=== PATIENT | female | born 1955 | race Caucasian/White ===

== ENCOUNTER 2020-12-15 10:03 | Emergency (ER) | payer MEDICARE, OTHER ==
[~2020-12-15] VITALS: Ht 157.5 cm; Wt 98.6 kg
[2020-12-15 10:22] VITALS: TEMP 98.8
[2020-12-15 10:54] LABS: INR 1.1 (0.8-3.0); PROTHROMBIN TIME 11.7 SECONDS (9.7-12.8)
[2020-12-15] MEDS ORDERED: CARDIZEM120 MG PO (10:54)
[2020-12-15] MEDS ORDERED: ASPIRIN 81M81 MG/TA2 PO (10:55)
[2020-12-15] MEDS ORDERED: HCTZ 25MG TAB25 MG PO (10:55)
[2020-12-15] MEDS ORDERED: COREG12.5 MG PO (10:56)
[2020-12-15 10:57] LABS: ALANINE AMINOTRANSFERASE 47 U/L (4-34); ALBUMIN 4.3 gm/dL (3.5-5.0); ALKALINE PHOSPHATASE 46 U/L (50-136); ANION GAP 7 mmol/L (7-16); AST,SGOT 49 U/L (15-37); BILIRUBIN,TOTAL 0.5 mg/dL (0.0-1.0); BLOOD UREA NITROGEN 8 mg/dL (7-17); CALCIUM 9.9 mg/dL (8.4-10.2); CARBON DIOXIDE 28 mmol/L (22-30); CHLORIDE 101 mmol/L (98-107); GLUCOSE 152 mg/dL (74-106); PARTIAL THROMBOPLASTIN TIME 21.5 SECONDS (26.0-37.0); POTASSIUM 4.2 mmol/L (3.4-5.0); SODIUM 136 mmol/L (137-145); TOTAL PROTEIN 7.6 gm/dL (6.4-8.2)
[2020-12-15] MEDS ORDERED: MEGARED OMEGA-1 EAC3 PO (10:58)
[2020-12-15] MEDS ORDERED: NITROSTAT0.4 MG/TAB SL (10:58)
[2020-12-15] MEDS ORDERED: ZOLOFT 50MG50 MG PO (11:02)
[2020-12-15] MEDS ORDERED: PROTONIX 40MG T40 MG PO (11:03)
[2020-12-15] MEDS ORDERED: VALIUM 10MG10 MG/TAB PO (11:03)
[2020-12-15] MEDS ORDERED: ZOFRAN 4MG T4 MG/TAB PO (11:04)
[2020-12-15] MEDS ORDERED: TESSALON PERLE200 MG PO (11:04)
[2020-12-15 11:09] LABS: TROPONIN-I < 0.012 ng/mL (0.000-0.035)
[2020-12-15 11:16] LABS: BASO % 0.4 % (0.0-2.0); EOS # 0.1 (0.0-0.7); EOS % 2.2 % (0-4.0); GRAN # 3.6 (1.4-6.5); GRAN % 65.4 % (42.2-75.2); HEMATOCRIT 39.7 % (37.0-47.0); HEMOGLOBIN 13.1 g/dl (12.5-16.0); LYMPH # 1.4 (1.2-3.4); LYMPH % 24.6 % (20.0-51.0); MEAN CELL VOLUME 88 fl (80.0-100.0); MEAN CORPUSCULAR HEMOGLOBIN 29 pg (27.0-31.0); MEAN CORPUSCULAR HGB CONC 33 g/dl (33.0-37.0); MEAN PLATELET VOLUME 9.1 fl (7.4-10.4); MONO # 0.4 (0.1-0.6); MONO % 6.9 % (1.7-9.3); PLATELET COUNT 221 K/mm3 (130-400); RED BLOOD COUNT 4.53 M/mm3 (4.10-5.30); REDCELL DISTRIBUTION WIDTH-CV 13.2 % (11.5-14.5)
[2020-12-15 12:51] VITALS: BP 188/93; PULSE 72
== END 2020-12-15 12:52 | disposition home or self-care (01) ==
LOC: COL.ER 10:03
PROVIDERS: Family Medicine
DX: R06.02 Shortness of breath (principal); I10 Essential (primary) hypertension; I25.10 Atherosclerotic heart disease of native coronary artery without angina pectoris; Z95.9 Presence of cardiac and vascular implant and graft, unspecified; Z79.82 Long term (current) use of aspirin; Z79.899 Other long term (current) drug therapy

== ENCOUNTER 2021-01-06 09:10 | Day surgery (SDC) | payer MEDICARE, OTHER ==
[~2021-01-06] VITALS: Ht 157.5 cm; Wt 98.6 kg
[2021-01-06] VITALS (10 sets, daily range): BP systolic 108–147; BP diastolic 62–82; PULSE 68–77; TEMP 97.8
[~2021-01-06 09:10] MED LIST: ASPIRIN 81M81 MG/TA2 PO; CARDIZEM120 MG PO; COREG12.5 MG PO; HCTZ 25MG TAB25 MG PO; MEGARED OMEGA-1 EAC3 PO; NITROSTAT0.4 MG/TAB SL; PROTONIX 40MG T40 MG PO; TESSALON PERLE200 MG PO; VALIUM 10MG10 MG/TAB PO; ZOFRAN 4MG T4 MG/TAB PO; ZOLOFT 50MG50 MG PO
[2021-01-06 09:55] LABS: HEMATOCRIT 40.4 % (37.0-47.0); HEMOGLOBIN 13.4 g/dl (12.5-16.0); MEAN CELL VOLUME 86 fl (80.0-100.0); MEAN CORPUSCULAR HEMOGLOBIN 29 pg (27.0-31.0); MEAN CORPUSCULAR HGB CONC 33 g/dl (33.0-37.0); MEAN PLATELET VOLUME 9.4 fl (7.4-10.4); PLATELET COUNT 227 K/mm3 (130-400); RED BLOOD COUNT 4.68 M/mm3 (4.10-5.30); REDCELL DISTRIBUTION WIDTH-CV 12.7 % (11.5-14.5)
[2021-01-06 10:04] LABS: PROTHROMBIN TIME 11.5 SECONDS (9.7-12.8)
[2021-01-06 10:07] LABS: CALCIUM 9.7 mg/dL (8.4-10.2); CREATININE, serum 0.48 (0.52-1.25); PARTIAL THROMBOPLASTIN TIME 27.6 SECONDS (26.0-37.0); POTASSIUM 4.1 mmol/L (3.4-5.0)
[2021-01-06] MEDS ORDERED: COLACE 100100 MG/CAP PO (10:46)
--- NOTE | 2021-01-06 11:12 | NUR ---
SEE MERGE DOCUMENTATION FOR MEDICATION ADMINISTRATION AND INTRA/POST PROCEDURE SEDATION ASSESSMENTS.
--- NOTE | 2021-01-06 15:00 | NUR ---
PT RECOVERED WITH NO PROBLEM. TR BAND HAS BEEN DEFLATED, SITE DRESSED WITH BANDAID, FOLDED 2X2 AND COBAN. CMS INTACT DISTAL. WE HAVE REVIEWED DC/FU INSTRUCTIONS. NO QUESTIONS AT TIME OF DEPARTURE. IV DC'D WITH CATH INTACT, DRESSING APPLIED. PT HAS BEEN AMB WITH STEADY GAIT. TO EXIT VIA WHEELCHAIR.
--- NOTE | 2021-01-06 16:02 | NUR ---
Pt is back from label press operator. bs report from Milagro DEVINE. pt is awake and alert, pwd, TR band in place to rt wrist, cms intact distal. poc reviewed, lunch ordered call light in reach. friend at bs.
== END 2021-01-06 15:00 | disposition home or self-care (01) ==
LOC: COL.CAR 09:10
PROVIDERS: Internal Medicine Cardiovascular Disease
DX: I25.118 Atherosclerotic heart disease of native coronary artery with other forms of angina pectoris (principal); I10 Essential (primary) hypertension; E78.5 Hyperlipidemia, unspecified; Z79.82 Long term (current) use of aspirin; Z20.822 Contact with and (suspected) exposure to COVID-19; Z79.899 Other long term (current) drug therapy
CPT/HCPCS: J1644; J2250; J3010; J7030; Q9967

== ENCOUNTER 2022-01-23 22:23 | Inpatient (IN) | payer MEDICARE, OTHER ==
[~2022-01-23] VITALS: Ht 157.5 cm; Wt 96.4 kg
[~2022-01-23 22:23] MED LIST changes: +COLACE 100100 MG/CAP PO
[2022-01-23] MEDS ORDERED: WHCH (23:13)
[2022-01-24 00:25] LABS: BASO # 0.1 K/mm3 (0.0-0.2); BASO % 0.9 % (0.0-2.0); EOS # 0.2 K/mm3 (0.0-0.7); EOS % 2.8 % (0.0-4.0); GRAN # 4.2 K/mm3 (1.4-6.5); GRAN % 61.7 % (42.2-75.2); HEMOGLOBIN 12.8 g/dl (12.5-16.0); LYMPH # 1.9 K/mm3 (1.2-3.4); LYMPH % 27.9 % (20.0-51.0); MEAN CELL VOLUME 84 fl (80.0-100.0); MEAN CORPUSCULAR HEMOGLOBIN 29 pg (27-31); MEAN CORPUSCULAR HGB CONC 35 g/dl (33.0-37.0); MEAN PLATELET VOLUME 9.1 fl (7.4-10.4); MONO # 0.4 K/mm3 (0.1-0.6); MONO % 6.1 % (1.7-9.3); PLATELET COUNT 219 K/mm3 (130-400); RED BLOOD COUNT 4.35 M/mm3 (4.10-5.30)
[2022-01-24 00:29] LABS: HEMATOCRIT 36.4 % (37.0-47.0)
[2022-01-24 00:45] LABS: BILIRUBIN,TOTAL 0.5 mg/dL (0.2-1.2); CALCIUM 9.6 mg/dL (8.4-10.2); CREATININE, serum 0.6 mg/dL (0.57-1.11); MAGNESIUM 1.5 mg/dL (1.6-2.6); POTASSIUM 3.8 mmol/L (3.5-4.5); TOTAL PROTEIN 7.4 gm/dL (6.2-8.1)
[2022-01-24 01:13] LABS: COLLECTION METHOD IN
[2022-01-24 01:19] LABS: PH 5 (5-8); URINE APPEARANCE Clear (CLEAR/HAZY); URINE BLOOD Negative (NEGATIVE); URINE COLOR Straw (YELLOW); URINE GLUCOSE Negative (NEGATIVE); URINE KETONE Negative (NEGATIVE); URINE NITRATE Negative (NEGATIVE); URINE PROTEIN(semi-quant) Negative (NEGATIVE); URINE UROBILINOGEN Negative (NEGATIVE)
[2022-01-24 01:21] LABS: SQUAMOUS EPITHELIAL 0-2 /hpf (0-10); URINE BACTERIA Rare /hpf (NONE SEEN); URINE RBC 0-2 /hpf (0-2)
[2022-01-24 01:57] VITALS: BP 135/75; PULSE 80; TEMP 98.5
[2022-01-24] MEDS ORDERED: MIRALAX PA17 GM/Dose PO (02:04)
[2022-01-24] MEDS ORDERED: CARDIZEM CD 12120 MG PO (02:09)
[2022-01-24] MEDS ORDERED: COREG 25MG25 MG/TAB PO (02:26)
[2022-01-24 04:22] VITALS: BP 129/61; PULSE 89; TEMP 98.7
--- NOTE | 2022-01-24 06:08 | NUR ---
Pt has had an uneventful night. Pain has been managed with x1 dose of morphine and x1 dose of norco. The patient does have considerable pain when she moves. Per orders, the patient is NWB until after PT sees her. No other concerns. Will report to Day shift RN.
[2022-01-24 07:28] VITALS: BP 147/74; PULSE 80; TEMP 97.9
--- NOTE | 2022-01-24 10:02 | NUR ---
Initial visit; Patient has broken both ankles and talked about her "bad luck!" She and Customs Brokerage Agent prayed and Customs Brokerage Agent offered comfort and will keep her in her prayers.
[2022-01-24 12:00] VITALS: BP 119/57; PULSE 75; TEMP 98.2
--- NOTE | 2022-01-24 14:45 | NUR ---
KATIA met with the patient to discuss to discuss discharge plan. The patient lives alone in an apartment in [place]. She states that she lives on the first floor and they are handicap accessible apartments. She reports indepedence with ADLs and has a cane. The patient's PCP is Dr. Montez Bates in and she receives her medications from [facility]. The patient does not have a DPOA-HC, but she was interested in obtaining a form. KATIA provided. The patient states that she is still to her , Asuncion, but he is in longterm and does not want him involved. She has two daughters, but does not talk to them. She provided SW with her sister's contact information: Talat (ph#[phone]). She lives in [place]. SW informed her that her would be her legal next of kin, until the DPOA-HC is completed. The patient verbalized understanding and states that she plans on getting the DPOA-HC done while here. The patient has bilateral ankle fractures and is non-weight bearing. KATIA discussed post-acute rehab upon discharge. The patient is interested in rehab. SW provided her with Medicare.gov's list of SNFs in the [place] area and informed her or [facility]. The patient chose IPR. She does not have a second preference and is open to SW sending referrals to other local facilities and [facility]. KATIA consulted [facility] Director, Ruma. KATIA contacted and faxed a referral to [facility], [facility], and [facility]. Awaiting screens. The patient provides that she has also been depressed with why her is in longterm and that he will be getting out soon. She was interested in a list of mental health resources. SW provided her with that list. The patient denies suicideal ideation. *Discharge plan: post-acute rehab*
[2022-01-24 15:26] VITALS: BP 126/53; PULSE 71; TEMP 98.4
[2022-01-24 21:46] VITALS: BP 134/55; PULSE 70; TEMP 98.2
--- NOTE | 2022-01-24 22:06 | NUR ---
PT A&O RESTING IN BED. PT REPORTING PAIN 4/10 IN BLE. NORCO GIVEN. NO INSULIN NEEDED PER SS. ASSESSMENT COMPLETED. SPLINTS APPLIED TO BLE. JONES IN PLACE. IV WITH NS @75 IN RT HAND. NO OTHER NEEDS AT THIS TIME. CALL LIGHT WITHIN REACH.
[2022-01-25] VITALS (13 sets, daily range): BP systolic 109–158; BP diastolic 48–88; PULSE 62–78; TEMP 97.6–98.3
--- NOTE | 2022-01-25 01:45 | NUR ---
PT REPORTS HAVING PAINFUL SPASMS IN HER RIGHT FOOT. NORCO GIVEN FOR PN RELIEF.
[2022-01-25 06:24] LABS: BASO % 0.6 % (0.0-2.0); EOS # 0.2 K/mm3 (0.0-0.7); EOS % 3.9 % (0.0-4.0); GRAN # 2.7 K/mm3 (1.4-6.5); GRAN % 55.9 % (42.2-75.2); HEMATOCRIT 37.8 % (37.0-47.0); HEMOGLOBIN 12.6 g/dl (12.5-16.0); LYMPH # 1.5 K/mm3 (1.2-3.4); MEAN CELL VOLUME 87 fl (80.0-100.0); MEAN CORPUSCULAR HEMOGLOBIN 29 pg (27-31); MEAN CORPUSCULAR HGB CONC 33 g/dl (33.0-37.0); MEAN PLATELET VOLUME 9.7 fl (7.4-10.4); MONO # 0.4 K/mm3 (0.1-0.6); MONO % 7.8 % (1.7-9.3); PLATELET COUNT 215 K/mm3 (130-400); RED BLOOD COUNT 4.36 M/mm3 (4.10-5.30); REDCELL DISTRIBUTION WIDTH-CV 12.3 % (11.5-14.5)
[2022-01-25 06:34] LABS: CALCIUM 9.5 mg/dL (8.4-10.2); CREATININE, serum 0.63 mg/dL (0.57-1.11)
--- NOTE | 2022-01-25 07:00 | NUR ---
ATTEMPTED TO CALL ORTHO CONSULT PATIENT WAS NEARLY DISCHARGED FROM ER WITH AN ORTHO FLEX APT @ 1000 ACCORDING TO ER DOCUMENTATION. SINCE ADMISSION TO FLOOR, NO ORTHO NOTIFICATION FOR CONSULTED COMPLETED. NEITHER ORTHO GROUP WAS AWARE OF PATIENT IN ER OR ADMISSION STATUS. WILL CONSULT FOR THIS PATIENT, SEE ORDERS.
--- NOTE | 2022-01-25 08:00 | NUR ---
PATIENT IS A&O. VSS. C/O PAIN IN BLE RATED AT 6/10, GAVE PRN NORCO PER ORDERS. BLE ELEVATED WITH PILLOWS. SPLINT/CAST DRESSING IS CD&I. NWB TO BLE. PT/OT CONSULTED. AWAITING ORTHO TO ROUND. NO C/O N/V. BREAKFAST TRAY AT BEDSIDE. AM BS WAS 140'S, NO SSI REQUIRED. AM MEDS GIVEN. RIGHT HAND IV TO INT. JONES TO DD WITH MOD AMOUNTS OF CLEAR YELLOW URINE NOTED. HEAD TO TOE ASSESSMENT COMPLETE. PATIENT LIVES ALONE HER IS IN SENIOR LIVING REPORTED BY HER. PATIENT WILL LIKELY NEED PLACEMENT UPON DISCHARGE.
[2022-01-25] MEDS ORDERED: ISORDIL TITRADO30 MG PO (09:03)
[2022-01-25] MEDS ORDERED: BENICAR40 MG PO (09:08)
[2022-01-25] MEDS ORDERED: NORVASC 10MG10 MG PO (09:08)
[2022-01-25] MEDS ORDERED: WELLBUTRIN XL150 MG PO (09:09)
[2022-01-25] MEDS ORDERED: TOPROL XL 50MG50 MG PO (09:11)
[2022-01-25] MEDS ORDERED: ELIQUIS 5MG PO (09:12)
[2022-01-25] MEDS ORDERED: FLEXERIL 1010 MG/TAB PO (09:14)
[2022-01-25] MEDS ORDERED: PAMELOR75 MG PO (09:16)
[2022-01-25] MEDS ORDERED: LIPITOR20 MG PO (09:18)
[2022-01-25] MEDS ORDERED: VESICARE10 MG PO (09:19)
[2022-01-25] MEDS ORDERED: NORCO 325 MG-101 TAB PO (09:20)
[2022-01-25] MEDS ORDERED: MIRALAX PA17 GM/Dose PO (09:21)
[2022-01-25] MEDS ORDERED: ZOFRAN8 MG PO (09:23)
[2022-01-25] MEDS ORDERED: PROMETHAZINE12.5 M5 PO (09:24)
[2022-01-25] MEDS ORDERED: CARAFATE 1GM1 G PO (09:25)
--- NOTE | 2022-01-25 10:00 | NUR ---
ORTHO MIDLEVEL ROUNDING, PATIENT WILL REQUIRE SURGICAL INTERVENTION. PATIENT ALREADY AT BREAKFAST AND IS NOW NPO. PT HAD ALSO BE CONSULTED ON ADMISSION AND GOT PATIENT UP TO WC WITH SLIDE BOARD, PER ORDERS, WITH NWB STATUS TO BLE. PATIENT IS NOW BACK IN BED ON BEDREST TILL SURGERY. SEE ORDERS FOR CONSENT. ANESTHESIA AWARE. PLAN IS FOR OR AROUND 1600.
--- NOTE | 2022-01-25 10:25 | NUR ---
Follow-up; Mireille enjoying sitting up this morning and visited and 'joked around' with Yoker Machine Operator. Patient thanked Yoker Machine Operator for coming in, making her day shipping support and offering God's blessings.
--- NOTE | 2022-01-25 11:02 | NUR ---
Ortho was consulted. Ortho plans to take the patient to surgery today. Ruma, [facility] Director, reports that they are following the patient. SW to fax updates to [facility], [facility], and [facility].
--- NOTE | 2022-01-25 12:45 | NUR ---
Nia, at [facility], reports that they have declined the patient.
--- NOTE | 2022-01-25 15:20 | NUR ---
PATIENT GOING DOWN TO OR EARLY FOR A BLOCK. CONSENT ON CHART. IV FLUIDS INFUSING VIA GRAVITY. PATIENT OFF FLOOR.
--- NOTE | 2022-01-25 18:15 | NUR ---
PATIENT BACK IN ROOM POST OP. A&O. NO C/O PAIN. UNABLE TO MOVE BLE DUE TO BLOCK. VSS. HEAD TO TOE ASSESSMENT WNL. PATIENT ASKING ABOUT EATTING AND IS NOW LOOKING AT MENU. BS IN PACU WAS 138. ADA DIET.
--- NOTE | 2022-01-25 19:52 | NUR ---
PT A&O RESTING IN BED WATCHING TV. PT TOLERATED DINNER. ASSESSMENT COMPLETED. PT RATES PN A 0/10. CAM WALKERS APPLIED TO BLE. IV FLUIDS TO LH. JONES IN PLACE. NO OTHER NEEDS AT THIS TIME. CALL LIGHT WITHIN REACH.
[2022-01-26 03:42] VITALS: BP 153/64; PULSE 70; TEMP 97.4
[2022-01-26 06:22] LABS: BASO % 0.5 % (0.0-2.0); EOS # 0.2 K/mm3 (0.0-0.7); EOS % 4.2 % (0.0-4.0); GRAN # 3.6 K/mm3 (1.4-6.5); GRAN % 62.6 % (42.2-75.2); HEMOGLOBIN 11.6 g/dl (12.5-16.0); LYMPH # 1.4 K/mm3 (1.2-3.4); LYMPH % 24.7 % (20.0-51.0); MEAN CELL VOLUME 90 fl (80.0-100.0); MEAN CORPUSCULAR HEMOGLOBIN 29 pg (27-31); MEAN CORPUSCULAR HGB CONC 32 g/dl (33.0-37.0); MEAN PLATELET VOLUME 9.5 fl (7.4-10.4); MONO # 0.4 K/mm3 (0.1-0.6); MONO % 7.5 % (1.7-9.3); PLATELET COUNT 197 K/mm3 (130-400); RED BLOOD COUNT 4.03 M/mm3 (4.10-5.30); REDCELL DISTRIBUTION WIDTH-CV 12.5 % (11.5-14.5)
[2022-01-26 06:25] LABS: HEMATOCRIT 36.2 % (37.0-47.0)
[2022-01-26 06:38] LABS: CALCIUM 9.6 mg/dL (8.4-10.2); CREATININE, serum 0.65 mg/dL (0.57-1.11); POTASSIUM 3.6 mmol/L (3.5-4.5)
--- NOTE | 2022-01-26 08:00 | NUR ---
PATIENT IS A&O. VSS. DENIES PAIN IN BLE SINCE GETTING BLOCK YESTERDAY IN OR. PAIN WELL MANAGED. CAM BOOTS INPLACE TO BLE. TTWB TO LLE. WBAT TO RLE. PT/OT CONSULTED. PATIENT REPORTS SHE WILL NEED PLACEMENT SHE CURRENTLY LIVES ALONE BECAUSE HER IS IN GROUP HOME. NO C/O N/V. LEFT FORARM IV TO INT. AM BS IS 181. BREAKFAST TRAY AT BEDSIDE. AM MEDS GIVEN. HEAD TO TOE ASSESSMENT COMPLETE. JONES TO DD WITH MOD AMOUNTS OF URINE NOTED. NO OTHER NEEDS AT THIS TIME. CALL LIGHT IN REACH.
--- NOTE | 2022-01-26 08:45 | NUR ---
PATIENT UP TO BEDSIDE COMMODE WITH PIVOTE TRANSFER WITH PT. PATIENT DID HAVE BM. PATIENT THEN TRANSFERED INTO BEDSIDE CHAIR. PATIENT BECAME TEARFUL AT DIFFICULTY IN JUST PIVOTING BUT REPORTS NO ISSUES WITH PAIN. PATIENT ALSO EXPRESSES DIFFICULTY WITH MAINTAINING TTWB TO LLE. CAM BOOTS TO BLE. SEE PT NOTES.
[2022-01-26 09:04] VITALS: BP 148/59; PULSE 81; TEMP 97.8
--- NOTE | 2022-01-26 10:00 | NUR ---
HOSPITALIST TEAM ROUNDING, SEE ORDERS.
[2022-01-26 11:38] VITALS: BP 146/71; PULSE 79; TEMP 98.1
[2022-01-26 16:00] VITALS: BP 162/84; TEMP 98.7
[2022-01-26 19:46] VITALS: BP 148/64; PULSE 72; TEMP 98.4
--- NOTE | 2022-01-26 21:00 | NUR ---
PT A&OX4 RESTING IN BED. ASSESSMENT COMPLETED. NO INSULIN REQUIRED PER SS. PT RATES PN IN RLE A /10 AND NO PN IN THE LLE. CAM BOOTS TO BOTH EXTREMITIES. LH INT PATENT. NO OTHER NEEDS AT THIS TIME. CALL LIGHT WITHIN REACH.
[2022-01-26 23:00] VITALS: BP 131/89; PULSE 79; TEMP 98.6
[2022-01-27 03:43] VITALS: BP 135/61; PULSE 71; TEMP 97.9
[2022-01-27 07:53] VITALS: BP 167/76; PULSE 78; TEMP 98.4
--- NOTE | 2022-01-27 09:31 | NUR ---
CALLED DR MABLE BALL. SHE STATED FROM [facility] STANDPOINT PATIENT IS TO FOLLOW UP WITH THEM IN 1 WEEK. WBAT TO R LEG, AND TTWB TO LEFT LEG. CAMBOOTS TO STAY ON UNLESS SHORT PERIOD OF TIME FOR ASSESSEMENT. TRHEY ARE COMFORTABLE WITH PATIENT GOING TO I[facility] IF REQUESTED. AND WILL FOLLOW UP AGAIN IF NEEDED. WILL INFORM HOSPITALIST GROUP.
[2022-01-27 11:53] VITALS: BP 116/54; PULSE 71; TEMP 98.3
[2022-01-27] MEDS ORDERED: PHARMASSURE L-500 MG PO (14:39)
[2022-01-27] MEDS ORDERED: MELATONIN5 M1 SL (14:40)
[2022-01-27] MEDS ORDERED: ZOLOFT 50MG50 MG PO (14:45)
--- NOTE | 2022-01-27 14:54 | NUR ---
Ruma, [facility] Director, reports that they are able to accept the patient today. The patient is to discharge today, 01/27, to [facility]. No additional needs at this time.
[2022-01-27 16:03] VITALS: BP 126/55; PULSE 73; TEMP 98
[2022-01-27] MEDS ORDERED: LOVENOX 4040 MG/0.4 SQ (18:13)
[2022-01-27] MEDS ORDERED: TYLENOL 500MG500 MG PO (18:13)
== END 2022-01-27 16:45 | DRG 494 ==
LOC: COL.ER 22:23 → SURG 23:53
PROVIDERS: Nurse Practitioner Primary Care; Orthopaedic Surgery; Student in an Organized Health Care Education/Training Program; ADMIT Internal Medicine
PROC: 2W3LX1Z Immobilization of Right Lower Extremity using Splint (ICD-10-PCS; 2022-01-24)
PROC: 2W3MX1Z Immobilization of Left Lower Extremity using Splint (ICD-10-PCS; 2022-01-24)
PROC: 0QSK04Z Reposition Left Fibula with Internal Fixation Device, Open Approach (ICD-10-PCS; principal; 2022-01-25 16:00)
DX: S82.402A Unspecified fracture of shaft of left fibula, initial encounter for closed fracture (principal); F32.A Depression, unspecified; K21.9 Gastro-esophageal reflux disease without esophagitis; I10 Essential (primary) hypertension; I25.10 Atherosclerotic heart disease of native coronary artery without angina pectoris; S82.401A Unspecified fracture of shaft of right fibula, initial encounter for closed fracture; W18.39XA Other fall on same level, initial encounter; E78.5 Hyperlipidemia, unspecified; E11.9 Type 2 diabetes mellitus without complications; M85.80 Other specified disorders of bone density and structure, unspecified site; Z96.651 Presence of right artificial knee joint; R53.81 Other malaise; Y90.6 Blood alcohol level of 120-199 mg/100 ml; Z85.44 Personal history of malignant neoplasm of other female genital organs; Z95.5 Presence of coronary angioplasty implant and graft; Y93.89 Activity, other specified; Y92.89 Other specified places as the place of occurrence of the external cause; Z90.710 Acquired absence of both cervix and uterus; Z88.5 Allergy status to narcotic agent; Z88.0 Allergy status to penicillin; Z88.8 Allergy status to other drugs, medicaments and biological substances; Z72.89 Other problems related to lifestyle; Z79.82 Long term (current) use of aspirin; Z79.4 Long term (current) use of insulin
CPT/HCPCS: OP; C1713; J0690; J1650; J1815; J1885; J2250; J2270; J2405; J2704; J2795; J3010; J3475; J7030; L4386

== ENCOUNTER 2022-01-27 11:03 | Inpatient (IN) | payer MEDICARE, OTHER ==
[~2022-01-27] VITALS: Ht 157.5 cm; Wt 129.8 kg
[~2022-01-27 11:03] MED LIST changes: +BENICAR40 MG PO; +CARAFATE 1GM1 G PO; +CARDIZEM CD 12120 MG PO; +COREG 25MG25 MG/TAB PO; +ELIQUIS 5MG PO; +FLEXERIL 1010 MG/TAB PO; +ISORDIL TITRADO30 MG PO; +LIPITOR20 MG PO; +MIRALAX PA17 GM/Dose PO; +NORCO 325 MG-101 TAB PO; +NORVASC 10MG10 MG PO; +PAMELOR75 MG PO; +PROMETHAZINE12.5 M5 PO; +TOPROL XL 50MG50 MG PO; +VESICARE10 MG PO; +WELLBUTRIN XL150 MG PO; +WHCH; +ZOFRAN8 MG PO
[2022-01-27] MEDS ORDERED: PHARMASSURE L-500 MG PO (14:39)
[2022-01-27] MEDS ORDERED: MELATONIN5 M1 SL (14:40)
[2022-01-27] MEDS ORDERED: ZOLOFT 50MG50 MG PO (14:45)
--- NOTE | 2022-01-27 17:51 | NUR ---
ASSESSMENT DONE ORDER. PATIENT ARRIVED AT 520 PM IN ROOM 340. PATIENT ALERT AND ORIENT X 4 WITH NO MEMORY ISSUE AT THIS TIME. PAIN IS MILD AT THIS TIME 4/10 ON PAIN SCALE. LUNG SOUND CLERA IN ALL LOBES. BOWEL SOUND ACTIVE IN ALL 4 QUADS. BOWEL MOVEMENT DURING ROOM CHANGE (LOOSE STOOL) PATIENT ABLE TO STAND AND PELIV TO COMMOND AND BACK TO BED. LEFT FOOT SURGERY. RIGHT FOOT NO FRACTURE NOTED. BOTH OF THEM HAVE A BOOT ON. LEFT FOOT HAS STABLES AND IS WRAP UP WITH KEROFORM AND GAUZE WITH MORENA WRAP. CALL LIGHT IN REACH, BED ALARM ON ORDER.
[2022-01-27] MEDS ORDERED: LOVENOX 4040 MG/0.4 SQ (18:13)
[2022-01-27] MEDS ORDERED: TYLENOL 500MG500 MG PO (18:13)
[2022-01-27 18:45] VITALS: BP 148/64; PULSE 78; TEMP 98
--- NOTE | 2022-01-27 20:00 | NUR ---
ASSISTED PIVOT TO BSC PER LT TTWB/ WALKER. VOIDED W/O DIFFICULTY. PT C/O SEVERE BILAT ANKLE PAIN. SEE MAR FOR NORCO GIVEN. INT TO LT HAND DC'D. READY FOR BED. CALL LIGHT IN REACH. BED ALARM SET.
[2022-01-28 05:25] VITALS: BP 146/65; PULSE 70; TEMP 98.3
--- NOTE | 2022-01-28 06:48 | NUR ---
BEDSIDE REPORT DONE ORDER. PATIENTRESTING IN BED WITH NO DISTRESS NOTED. CALL LIGHT IN REACH.
--- NOTE | 2022-01-28 10:07 | NUR ---
ASSESSMENT DONE ORDER. PATIENT ALERT X 4 WITH NO MEMORY ISSUE. PATIENT CAME FROM SURGICAL UNIT YESTERDAY. PATIENT WAS PIVOT TURN TRANSFER DUE TO FRACTURE ON LEFT FOOT AND BRUISE ON RIGHT FOOT.BILAT CAM BOOTS ON ORDER. POPEYECO WAS GIVEN THIS AM FOR PAIN DUE TO MOVING AROUND. LUNG SOUND CLEAR IN ALL LOBES. BOWEL SOUND ACTIVE IN ALL 4 QUADS. PATIENT SLIGHTLY WEAK AND OT IS WORKING ON UPPER ARM. PT WORKING ON LOWER PART OF BODY AND TRYING TO GET HER RIGHT LEG STRONGER. SPOKE WITH DR TAYLOR ABOUT LIPITOR AND SSI. HE SAID HE WILL DISCONTINUE LIPITOR AND D/C ACCUCHECK DUE TO PATIENT NOT TAKING ANY MEDICATION AND CONTROLLY IT WITH DIET AND EXCERISE. CALL LIGHT IN REACH.
--- NOTE | 2022-01-28 15:00 | NUR ---
Insurance Sales Executive met with patient to complete initial intake as she is new to [facility]. Patient lives alone in [place] with her cat, Jen in a one level apartment. Patient currently sees Dr. Montez Bates for primary care, but plans to change this at some point. Insurance Sales Executive discussed DPOA-HC wiht patient as her legal next of kin, her is in [facility] and patient also does not have good communication with her children. Patient would like to complete DPOA-HC form with SW and she stated she wanted to desigate her friend, Brigid (ph#[phone]) as primary agent and sister, Talat (ph#[phone]). SW assisted patient in completing form then SW and RN provided witness signature. SW placed form in chart and provided copy to patient. Patient had no questions or concerns at this time.
--- NOTE | 2022-01-28 16:18 | NUR ---
SAMPSON MONTALVO CAME BY AND SPOKE WITH PATIENT REGARDING DOPA. PAPERWORK WAS SIGN BY PATIENT,NURSE AND SW. PATIENT REQUESTING FOR HER FRIEND TO BE THE DPOA. PATIENT HAD PAIN DUE TO WORKING ALOT ON HER RIGHT FOOT. EXPLAIN TO SLOW DOWN A LITTLE AND REST INBETWEEN SESSION. PATIENT UNDERSTOOD.
[2022-01-28 16:43] VITALS: BP 139/56; PULSE 67; TEMP 97.7
--- NOTE | 2022-01-28 19:05 | NUR ---
RECEIVED CHANGE OF SHIFT REPORT FROM DAY SHIFT RN.
[2022-01-29 05:57] VITALS: BP 148/65; PULSE 70; TEMP 97.7
--- NOTE | 2022-01-29 06:42 | NUR ---
BEDSIDE REPORT DONE ORDER. PATIENT RESTING IN BED. CALL LIGHT IN REACH
--- NOTE | 2022-01-29 07:15 | NUR ---
CHANGE OF SHIFT REPORT GIVEN TO DAY SHIFT RNCULLEN.
--- NOTE | 2022-01-29 10:10 | NUR ---
ASSESSMENT DONE ORDER. PATIENT ALERT X 4 WITH NO MEMORY ISSUE. PATIENT PAIN WAS SLIGHTLY HIGH THIS AM SHE ASK FOR A PAIN MEDICATION. NORCO WAS GIVEN ORDER. PAIN WAS A 6/10 BEFORE MEDICATION. LUNG SOUND CLEAR IN ALL LOBES. BOWEL SOUND ACTIVE IN ALL 4 QUADS. LEGS IN BOOT ORDER. NO DRAIN NOTED. PATINET ABLE TO PIVOT AND USE COMMODE.
--- NOTE | 2022-01-29 12:12 | NUR ---
NORCO AND TYLENOL WAS GIVEN ABOUT 4 HOURS APART. PATIENT STATED HER PAIN IS 4/10 AT THIS TIME BUT AT 11AM, HER PAIN WAS A 2/10. EXPLAIN TO REST AND WE WILL REASSESS THE PAIN. PATIENT UNDERSTOOD
[2022-01-29 17:24] VITALS: BP 151/58; PULSE 80; TEMP 98.1
--- NOTE | 2022-01-29 18:12 | NUR ---
PATIENT HAD A LARGE LOOSE BOWEL MOVEMENT. PATIENT HAD 4 TYLENOL TODAY AND 1 DOSE OF NORCO FOR PAIN. PAIN HAS BEEN AROUND 07/29-09/26.
--- NOTE | 2022-01-29 18:53 | NUR ---
RECEIVED CHANGE OF SHIFT REPORT FROM DAY SHIFT RN.
--- NOTE | 2022-01-29 19:26 | NUR ---
PATIENT REQUESTED/GIVEN PAIN MED, SEE MAR FOR MED GIVEN. UP TO BSC TO VOID AND BACK TO BED WITH NO ADDITIONAL COMPLAINTS/NEEDS REPORTED AT THIS TIME.
--- NOTE | 2022-01-30 01:38 | NUR ---
ASSISTED PATIENT TO BEDSIDE COMMODE, X1 ASSIST. PATIENT HAD UNMEASURED CLEAR YELLOW VOID. ASSISTED PATIENT BACK TO BED. PATIENT REQUESTED PAIN MEDICATION. NORCO GIVEN LAST. DISCUSSED WITH POPEYE DEVINE, PRN TYLENOL GIVEN. DENIES ADDITIONAL NEEDS.
[2022-01-30 05:17] VITALS: BP 149/56; PULSE 63; TEMP 97.8
--- NOTE | 2022-01-30 06:49 | NUR ---
CHANGE OF SHIFT REPORT GIVEN TO DAY SHIFT RNFERNANDA.
--- NOTE | 2022-01-30 08:24 | NUR ---
PATIENT CURRENTLY RESTING IN BED. SHE HAD A LARGE LOOSE BOWL MOVEMENT. PAIN MEDICINE GIVEN. CALL LIGHT AND BELNIREYNAGS WITHIN REACH.
[2022-01-30 17:35] VITALS: BP 140/59; PULSE 69; TEMP 98
--- NOTE | 2022-01-30 19:05 | NUR ---
RECEIVED CHANGE OF SHIFT REPORT FROM DAY SHIFT RN.
--- NOTE | 2022-01-30 19:21 | NUR ---
PATIENT RESTING IN BED WITH RLE ELEVATED ON PILLOW, DENIES ANY NEEDS AT THIS TIME.
[2022-01-31 05:58] VITALS: BP 134/59; PULSE 70; TEMP 97.6
--- NOTE | 2022-01-31 06:59 | NUR ---
BEDSIDE REPORT DONE ORDER. PATIENT AWAKE AND IN BED RESTING. CALL LIGHT IN REACH.
--- NOTE | 2022-01-31 07:05 | NUR ---
CHANGE OF SHIFT REPORT GIVEN TO DAY SHIFT RNCULLEN.
--- NOTE | 2022-01-31 10:14 | NUR ---
ASSESSMENT DONE ORDER. PATIENT ALERT X 4 WITH NO MEMORY ISSUE. PATIENT ASK FOR A NORCO AT 8:00 THIS MORNING DUE TO PAIN ON RIGHT ANKLE 4/10. PATIENT STATED THAT HER PAIN HAS INCREASE BUT WITH NORCO ON BOARD IT DECREASE TO A 2/10 ON PAIN SCALE. LUNG SOUND CLEAR IN ALL LOBES. BOWEL SOUND ACTIVE IN ALL 4 QUADS. BOWEL MOVEMENT DAY WITH NO MIRALEX NEEDED. LOOSE STOOL.CALL LIGHT IN REACH.
--- NOTE | 2022-01-31 12:13 | NUR ---
WEIGHT WAS DONE TODAY. DURING ADMISSION PATIENT WAS WEIGHT IN BED. TODAY PATINET WAS WEIGHT ON SCALE WITH WHEELCHAIR. TODAY WEIGHT IS 99.5
--- NOTE | 2022-01-31 15:08 | NUR ---
PATIENT HAD SHOWER TODAY AND PATIENT INFORM OT THAT SHE HAS BEEN HAVING PAIN ON RIGHT ANKLE. NURSE ASSESS AND NOTICES THERE IS REDNESS ON ANKLE AND BELOW AND ON TOP. SWOLLEN WITH EDEMA NOTED(+2 PEDDING EDEMA) PAIN IS A 2/10 AT THIS TIME WITH OUT THE BOOT. PATIENT INFORM THAT WHEN SHE STAND SHE FEELS THAT THE BOOT IS RUBBING AGAINS THE ANKLE. I PLACE ICE AROUND AREA TO HELP WITH THE EDEMA. ELEVATED LEG AT THIS TIME. EXPLAIN THAT WE WILL WRAP AREA WITH MORENA WRAP TODAY TO HELP CUSHION UP BEFORE PLACING THE BOOT BACK ON. PATIENT UNDERSTOOD.
--- NOTE | 2022-01-31 15:17 | NUR ---
Admission QIM scores were reviewed by the team. Code of 5 chosen for oral hygiene was determined by team discussion to be the most usual performance before interventions for this patient during the assessment period. Code of 3 chosen for toilet hygiene was determined by team discussion to be the most usual performance before interventions for this patient during the assessment period. Code of 3 chosen for toilet transfer was determined by team discussion to be the most usual performance before interventions for this patient during the assessment period. Code of 6 chosen for lying to sitting on side of bed was determined by team discussion to be the most usual performance before interventions for this patient during the assessment period. Code of 3 chosen for sit to stand was determined by team discussion to be the most usual performance before interventions for this patient during the assessment period. Code of 3 chosen for chair/bed to chair transfer was determined by team discussion to be the most usual performance before interventions for this patient during the assessment period.--Ruma Pereira, PD
--- NOTE | 2022-01-31 15:38 | NUR ---
Disability Advocate checked in with patient who had questions about DME and Home Health. SW advised that the therapy team gets together on Wednesdays and SW will follow up with recommendations.
[2022-01-31 17:21] VITALS: BP 132/72; PULSE 67; TEMP 97.4
--- NOTE | 2022-01-31 19:58 | NUR ---
PATIENT RESTING IN BED EATHING HIS DINNER AT THIS TIME. PATIENT REQUESTS FRESH ICE WATER AT THIS TIME. PATIENT EXPRESSED APPRECIATION FOR THE FRESH ICE WATER AND DENIES FURTHER NEEDS OR CONCERNS. PATIENT IS ENCOURAGED TO CALL WITH ANY NEEDS OR CONCERNS. CALL LIGHT IS WITHIN REACH OF PATIENT.
[2022-02-01 03:30] VITALS: BP 130/64; PULSE 74; TEMP 97.6
--- NOTE | 2022-02-01 03:39 | NUR ---
PATIENT UP TO BEDSIDE COMMODE AND REQUESTS PAIN MEDICATION WELL PROTONIX AND LOVENOX. PATIENT STATES THAT WAY SHE WILL BE ABLE TO HOPEFULLY GET MORE SLEEP THIS WAY. PATIENT PIVOT TRANSFERS TO COMMODE WITH WALKER AND GAIT BELT AND ASSIST OF 1. PATIENT EXPRESSES APPRECIATION CARE WAS CLUSTERED FOR HER CONVENIENCE. PATIENT PIVOT TRANSFERS BACK TO BED WITH ASSIST OF 1, WALKER & GAIT BELT AT THIS TIME. PATIENT DENIES FURTHER NEEDS AND/OR CONCERNS AT THIS TIME. CALL LIGHT IS WITHIN PATIENT REACH.
--- NOTE | 2022-02-01 06:20 | NUR ---
PATIENT HAS HAD AN UNEVENTFUL NIGHT AND IS RESTING IN BED WITH EYES CLOSED AT THIS TIME. PATIENT SHOWS NO SIGNS OR EVIDENCE OF ANY NEEDS OR ISSUES AT THIS TIME. CALL LIGHT IS WITHIN REACH OF PATIENT.
--- NOTE | 2022-02-01 08:36 | NUR ---
Shift report was received from food service aide RN
--- NOTE | 2022-02-01 09:20 | NUR ---
Follow-up visit; Mireille states she is doing well and thanks Reinforced Concrete Inspector for looking in on her and keeping her in Reinforced Concrete Inspector's prayers.
--- NOTE | 2022-02-01 10:41 | NUR ---
Pt off the unit for Group Therapy
--- NOTE | 2022-02-01 14:10 | NUR ---
Pt reporting area of soreness to right lat. ankle. Skin assessed - no open area/abrasion noted. Bruising and swelling remain from injury. Allevyn foam dressing applied over tender area for comfort. Will continue to monitor.
--- NOTE | 2022-02-01 15:59 | NUR ---
Pt noted blood to top part of pull-up brief. Small scratch noted to right upper thigh, near crease of thigh and lower abd. Area cleaned and band aid applied. Redness noted to right outer panus. Skin barrier ointment/moisture barrier applied. Will continue to monitor
[2022-02-01 17:30] VITALS: BP 126/43; PULSE 73; TEMP 98
--- NOTE | 2022-02-01 19:00 | NUR ---
RECEIVED CHANGE OF SHIFT REPORT FROM DAY SHIFT RN.
[2022-02-02 05:45] VITALS: BP 157/68; PULSE 66; TEMP 97.9
--- NOTE | 2022-02-02 06:56 | NUR ---
Shift report received from film processing shift supervisor RN
--- NOTE | 2022-02-02 08:53 | NUR ---
Pt assisted to BSC using FWW, gait belt. Bilateral cam boots on. Pt reporting minimal pain. PRN pain medication was given with breakfast. Pt. assisted to wheelchair after toileting for ADLs. She denies additional needs. Call light is within her reach
--- NOTE | 2022-02-02 10:05 | NUR ---
Pt is back in room after PT. She remains in her wheelchair before next PT/OT session. She reports minimal pain. Jose wrap to LLE is CDI. Bilat cam boots are on. Call light is in her reach
--- NOTE | 2022-02-02 16:11 | NUR ---
Returning Officer met with patient to review and provide copy of team conference notes. SW reviewed scheduled discharge date of Monday which patient is pleased with. SW reviewed DME recommendations and advised that insurance typically only covers either a wheelchair OR walker, and both are recommended for patient. Patient would like to run insurance for the wheelchair and pay out of pocket for the walker. Patient requested prices of shower chairs. SW will follow up. SW also provided Medicare.gov list of agencies for patient to review.
[2022-02-02 16:50] VITALS: BP 125/52; PULSE 63; TEMP 97.9
--- NOTE | 2022-02-02 19:29 | NUR ---
BEGINNING OF SHIFT: PATIENT RESTING QUIETLY IN BED. PATIENT REPORTING PAIN AND GIVEN PRN PAIN MEDICATION. PATIENT DENIES OTHER NEEDS OR CONCERNS AT THIS TIME.
[2022-02-03 05:15] VITALS: BP 141/46; PULSE 67; TEMP 98.1
--- NOTE | 2022-02-03 06:07 | NUR ---
END OF SHIFT NOTE: PATIENT RESTED QUIETLY THIS SHIFT. PATIENT HAD NO CONCERNS OR COMPLAINTS. PATIENT GIVEN PRN LORTAB WITH AM MEDICATIONS AND PATIENT REPORTED THAT PAIN WAS BETTER THAN EXPECTED AFTER NOT GETTING UP ALL NIGHT. PATIENT UP TO BEDSIDE COMMODE WITH STAND BY ASSIST. PATIENT TRANSFERRED SELF AND PERFORMED SHAWN CARE INDEPENDENTLY WITH SET UP HELP ONLY.
--- NOTE | 2022-02-03 08:43 | NUR ---
BEDSIDE REPORT. PATIENT AWAKE WITH NO DISTRESS. PATIENT STATED THAT SHE HAS NO PAIN AT THIS TIME
--- NOTE | 2022-02-03 10:00 | NUR ---
ASSESSMENT DONE ORDER. PATIENT ALERT WITH NO MEMORY ISSUE. PATIENT GOING HOME TOMORROW. PATIENT HAS NO PAIN AT THIS TIME. LUNG SOUND CLEAR. BOWEL SOUND ACTIVE IN ALL 4 QUADS. PATIENT HAS BEEN EATING ABOUT 100% OF HER MEALS.PATIENT HAS BEEN SMILE SINCE i WALK IN AND INFORM ME THAT SHE IS HAPPY TO GO HOME BUT SAD THAT SHE IS NOT GOING TO SEE US AGAIN. SHE STATED THAT WE HELP HER ALOT AND IS VERY GRATEFUL. PATIENT HAS BEEN GETTING [facility] BUT USE THE COMMODE AT NIGHT. CALL LIGHT IN REACH.
--- NOTE | 2022-02-03 12:04 | NUR ---
Pharmacist'S Aide met with patient to review discharge plan as she will be discharged home tomorrow. Patient advised she was able to secure a walker and shower chair from a friend, so she only needs the wheelchair ordered at [facility]. Patient also selected [facility] from the Medicare.gov list of agencies. SW presented IM form to patient who verbalized understanding then provided signature. Form was placed in chart, patient declined copy. KATIA contacted [facility] and faxed order for wheelchair and requested it be delivered prior to discharge tomorrow. KATIA also contacted Arely with [facility] and faxed referral. Arely advised they will be able to accept patient.
[2022-02-03 17:47] VITALS: BP 122/61; PULSE 72; TEMP 98.1
--- NOTE | 2022-02-03 20:02 | NUR ---
ALISIA. LAYING IN BED. WATCHING TV. DENIES NEED FOR PAIN MED. CAM BOOTS ON BILAT. HAS GOOD SENSATION. DENIES NEEDS. CALL LIGHT IN REACH. PT MOD I IN ROOM WITH WALKER/ WC.
[2022-02-04 06:03] VITALS: BP 132/62; PULSE 70; TEMP 97.7
--- NOTE | 2022-02-04 06:18 | NUR ---
SEE MAR FOR NORCO GIVEN FOR BILAT ANKLE PAIN. LEVEL 4/10. PT REPORTS SLEPT OFF AND ON THROUGH THE NIGHT.
--- NOTE | 2022-02-04 06:46 | NUR ---
BEDSIDE REPORT DONE ORDER. PATIENT RESTING IN BED WITH NO DISTRESS. CALL LIGHT IN REACH.
[2022-02-04] MEDS ORDERED: ROXICODONE 55 MG/TAB PO (08:49)
--- NOTE | 2022-02-04 10:12 | NUR ---
ASSESSMENT DONE ORDER. PATIENT WILL BE DISCHARGE TODAY.PATIENT ALERT AND ORIENTED X 4 WITH NO PAIN NOTED. HAD A PAIN MEDICATION AROUND 6 AM. LUNG SOUND CLEAR IN ALL LOBES. BOWEL SOUND ACTIVE IN ALL 4 QUADS. PATINET ABLE TO STAND AND PIVOT WTIH WALKER AND USE WHEELCHAIR FOR MOBILITY. PATIENT IS EXCITED TO GO HOME. NO DISTRESS NOTED
--- NOTE | 2022-02-04 11:54 | NUR ---
Tugboat Operator contacted [facility] and confirmed they will deliver patient's wheelchair this morning. KATIA followed up with patient who advised she has been in contact with [facility] and has no further questions at this time. KATIA faxed discharge orders to [facility].
--- NOTE | 2022-02-04 12:51 | NUR ---
DISCHARGE NOTED. PATIENT LEFT THE FACILITY AT 1248PM WITH ALL HER BELONGING. PATIENT SIGN ALL DISCHARGE PAPERWORK AND WAS VERY THANKFUL FOR THE HELP. PATIENT HAD NO CONCERN OR QUESTION REGRADING CARE. DRESS ON HER LEFT FOOT WAS CHANGE BEFORE SHE LEFT. PATIENT PAIN WAS AT A 0/10 ON BOTH ANKLES/LOWER EXTREMITIES.WE WHEEL PATIENT DOWN IN HER PERSONAL WHEELCHAIR.
--- NOTE | 2022-02-04 13:35 | NUR ---
Discharge QIM scores were reviewed by the team. Code of 6 chosen for toilet transfer was determined by team discussion to be the most usual performance for this patient during the discharge assessment period.--PD Anila
== END 2022-02-04 12:48 | disposition home health service (06) | DRG 561 ==
PROVIDERS: ADMIT Physical Medicine & Rehabilitation Sports Medicine
DX: S82.62XD Displaced fracture of lateral malleolus of left fibula, subsequent encounter for closed fracture with routine healing (principal); S89.301D Unspecified physeal fracture of lower end of right fibula, subsequent encounter for fracture with routine healing; W18.39XD Other fall on same level, subsequent encounter; I25.10 Atherosclerotic heart disease of native coronary artery without angina pectoris; R26.89 Other abnormalities of gait and mobility; I10 Essential (primary) hypertension; E78.5 Hyperlipidemia, unspecified; K21.9 Gastro-esophageal reflux disease without esophagitis; F32.A Depression, unspecified; F10.20 Alcohol dependence, uncomplicated; Z73.6 Limitation of activities due to disability; Z96.651 Presence of right artificial knee joint; Z95.5 Presence of coronary angioplasty implant and graft; Z88.0 Allergy status to penicillin; Z79.82 Long term (current) use of aspirin; Z79.899 Other long term (current) drug therapy; Z88.8 Allergy status to other drugs, medicaments and biological substances; Z79.891 Long term (current) use of opiate analgesic; Z88.5 Allergy status to narcotic agent
CPT/HCPCS: J1650